=== PATIENT | female | born 1980 | race African-American/Black ===

== ENCOUNTER 2018-03-04 23:11 | Emergency (ER) | payer OTHER ==
[~2018-03-04] VITALS: Ht 177.8 cm; Wt 62.6 kg
[~2018-03-04 23:11] MED LIST: ASHLYNA 0.15-01 EACH PO; Colace PO; ESSENTIAL WOMA1 EAC1 PO; FEOSOL325 MG PO; Motrin PO; NASONEX17 GM BOTH NARES; NOHOMEMEDS; Percocet 5/325,Endoc PO; ZOLOFT25 MG PO
[2018-03-04 23:52] LABS: HEMATOCRIT 38.4 % (36.0-46.0); HEMOGLOBIN 13.5 G/DL (11.9-15.5); MCH 32.8 PG (29.0-34.0); MCHC 35.2 G/DL (30.0-36.0); MCV 93.2 FL (83-99); PLATELET COUNT 147 K/uL (156-360); RBC DIS.WIDTH-CV 12.3 % (11.8-14.6); RBC DIS.WIDTH-SD 42.6 % (39-53); RED BLOOD COUNT 4.12 M/uL (3.80-5.20); WHITE BLOOD COUNT 10.4 K/uL (4.1-10.2)
[2018-03-05 00:02] LABS: CHLORIDE 109 mEq/L (99-109); POTASSIUM 3.9 mEq/L (3.7-5.4); SODIUM 140 mEq/L (136-147)
[2018-03-05 00:04] LABS: GLUCOSE 93 mg/dL (70-99)
[2018-03-05 00:07] LABS: CREATININE 0.9 mg/dL (0.6-1.3); GFR ESTIMATE (CALCULATED) > 59 mL/min/
[2018-03-05 00:08] LABS: UREA NITROGEN (BUN) 13 mg/dL (9-23)
[2018-03-05 00:12] LABS: TROP-I INTERPRETATION NEGATIVE; TROPONIN-I < 0.01 ng/mL (0.0-0.30)
[2018-03-05] MEDS ORDERED: NAPROSYN500 MG PO (00:52)
[2018-03-05 01:07] VITALS: BP 114/79
[2018-03-07] MEDS ORDERED: FLONASE16 G1 BOTH NARES (09:43)
[2018-03-07] MEDS ORDERED: FAMOTIDINE20 MG PO (09:43)
[2018-03-07] MEDS ORDERED: PROBIOTIC1 EAC3 PO (09:43)
== END 2018-03-05 01:07 | disposition home or self-care (01) ==
LOC: EME 23:11
DX: R07.89 Other chest pain (principal); K21.9 Gastro-esophageal reflux disease without esophagitis; J45.909 Unspecified asthma, uncomplicated; F41.9 Anxiety disorder, unspecified; F17.200 Nicotine dependence, unspecified, uncomplicated
CPT/HCPCS: 71046; 80048; 84484; 85027; 93005; 99281; 99284

== ENCOUNTER 2018-03-10 05:40 | Day surgery (SDC) | payer OTHER ==
[~2018-03-10] VITALS: Ht 176.5 cm; Wt 63.0 kg
[~2018-03-10 05:40] MED LIST changes: +FAMOTIDINE20 MG PO; +FLONASE16 G1 BOTH NARES; +NAPROSYN500 MG PO; +PROBIOTIC1 EAC3 PO
[2018-03-10 06:07] VITALS: BP 114/66
[2018-03-10] MEDS ORDERED: ENDOCET 5-3251 EACH PO (07:24)
[2018-03-10] MEDS ORDERED: IBUPROFEN800 MG PO (07:24)
[2018-03-10 09:35] VITALS: BP 100/71
[2018-03-10 10:20] VITALS: BP 107/76
== END 2018-03-10 10:20 | disposition home or self-care (01) ==
LOC: SDC
PROC: 0UT74ZZ Resection of Bilateral Fallopian Tubes, Percutaneous Endoscopic Approach (ICD-10-PCS; principal; 2018-03-10)
DX: Z30.2 Encounter for sterilization (principal); K66.0 Peritoneal adhesions (postprocedural) (postinfection); N83.202 Unspecified ovarian cyst, left side; N83.201 Unspecified ovarian cyst, right side; I44.0 Atrioventricular block, first degree
CPT/HCPCS: 88302; J0131; J0330; J1100; J1885; J2250; J2405; J2765; J3010